=== PATIENT | female | born 1965 | race Caucasian/White ===

== ENCOUNTER 2023-12-23 19:48 | Emergency (ER) | payer OTHER ==
[~2023-12-23] VITALS: Ht 167.6 cm; Wt 77.1 kg
[2023-12-23 20:19] VITALS: BP 108/74; PULSE 68; RESP 18; TEMP 98.2; O2SAT 98
[2023-12-23] MEDS ORDERED: ATA25 PO (21:07)
[2023-12-23 21:16] VITALS: BP 108/74; PULSE 68; RESP 18; TEMP 98.2; O2SAT 98
== END 2023-12-23 21:16 | disposition home or self-care (01) ==
LOC: MED 19:48
DX: F41.9 Anxiety disorder, unspecified (principal); Z98.890 Other specified postprocedural states
CPT/HCPCS: 93005; 99283